=== PATIENT | female | born 2000 | race African-American/Black ===

== ENCOUNTER 2024-11-27 10:59 | Emergency (ER) | payer OTHER ==
[~2024-11-27] VITALS: Ht 175.3 cm; Wt 54.4 kg
[2024-11-27] MEDS ORDERED: LEXAPRO20 MG PO (11:19)
[2024-11-27] MEDS ORDERED: 0.9 % SODIUM CHLORIDE 1,000 ML IV SCH (11:45)
[2024-11-27 11:52] LABS: HEMATOCRIT 39.1 % (36.0-45.00); HEMOGLOBIN 12.9 g/dL (12.0-15.00); MEAN CELL VOLUME 99.6 fL (80.00-100.00); MEAN CORPUSCULAR HGB CONC 33.1 g/dl (32.0-36.0); PLATELET COUNT 224 K/uL (150-450); RED BLOOD COUNT 3.92 M/uL (4.00-6.00); RED CELL DISTRIBUTION WIDTH 12.8 % (11.5-14.5)
[2024-11-27 12:16] LABS: ALBUMIN 4.2 gm/dL (3.4-5.0); BILIRUBIN TOTAL 0.61 mg/dL (0.3-1.2); CALCIUM 8.9 mg/dL (8.5-10.1); CREATININE SERUM 0.66 mg/dL (0.55-1.02); GFR 111.99; GLOBULINA 3.1 G/DL (2.4-3.5); TOTAL PROTEIN 7.3 gm/dL (6.4-8.2)
[2024-11-27 12:28] LABS: POTASSIUM 2.64 mEq/L (3.5-5.1)
[2024-11-27] MEDS ORDERED: POTASSIUM CHLORIDE 10 MEQ CAPSULE PO ONE (12:45)
[2024-11-27 13:54] LABS: PH,URINE 5.5 (5.0-8.0); URINE APPEARANCE Cloudy; URINE BILIRRUBIN Negative (NEGATIVE); URINE BLOOD Negative; URINE COLOR Yellow; URINE GLUCOSE Negative (NEGATIVE); URINE LEUKOCYTE Negative; URINE NITRATE Negative; URINE PROTEIN Negative (NEGATIVE)
[2024-11-27 13:55] LABS: URINE BACTERIA 2369.6 uL (0.0-1933); URINE EPITHELIAL CELLS 95.4 uL (0.0-38.8); URINE RBC 22.2 uL (0.0-20.8); URINE WBC 18.2 uL (0.0-23.2)
[2024-11-27 14:51] LABS: COCAINE NEGATIVE (NEGATIVE); METHADONE NEGATIVE (NEGATIVE); OPIATES NEGATIVE (NEGATIVE); THC ( Cannabinoids) POSITIVE (NEGATIVE)
[2024-11-27 15:44] LABS: URINE CAST 0.73 uL (0.0-1.40); URINE KETONE 40 (NEGATIVE)
== END 2024-11-27 18:32 | disposition home or self-care (01) ==
LOC: ER 10:59
PROVIDERS: Emergency Medicine
DX: F10.929 Alcohol use, unspecified with intoxication, unspecified (principal); F12.10 Cannabis abuse, uncomplicated; E87.6 Hypokalemia; Z20.822 Contact with and (suspected) exposure to COVID-19; Z91.013 Allergy to seafood